=== PATIENT | male | born 1985 | race Two or more races ===

== ENCOUNTER 2019-05-06 04:55 | Emergency (ER) | payer MEDICAID ==
[~2019-05-06] VITALS: Ht 180.3 cm; Wt 77.0 kg
[2019-05-06] MEDS ORDERED: ONDANSETRON HCL 4 MG/2 ML VIAL IVP ONE (05:45)
[2019-05-06] MEDS ORDERED: SODIUM CHLORIDE 0.9% 1,000 ML IV ONE ×2 (05:45→07:15)
[2019-05-06 06:11] LABS: BASOPHILS % (AUTO) 0.4 % (0.0-2.0); EOSINOPHILS % (AUTO) 0.1 % (1.0-6.0); HEMATOCRIT 44.6 % (41-53); HEMOGLOBIN 15.6 g/dL (13.5-17.5); LYMPHOCYTES # (AUTO) 0.4 K/uL (1.0-4.8); LYMPHOCYTES % (AUTO) 2.1 % (22.0-44.0); MEAN CORPUSCULAR HEMOGLOBIN 30.7 pg (26.0-34.0); MEAN CORPUSCULAR HGB CONC 35.1 G/dL (31.0-37.0); MEAN CORPUSCULAR VOLUME 88 fL (80-100); MONOCYTES # (AUTO) 0.5 K/uL (0.1-1.0); NEUTROPHILS # (AUTO) 16.8 K/uL (1.8-7.7); PLATELET COUNT (AUTO) 227 K/uL (150-450); RED BLOOD CELL COUNT(AUTO) 5.09 MIL/uL (4.50-5.90); RED CELL DISTRIBUTION WIDTH 12.6 % (11.5-14.5)
[2019-05-06 06:13] LABS: NEUTROPHILS % (AUTO) 94.4 % (40.0-70.0)
[2019-05-06] MEDS ORDERED: BISMUTH SUBSALICYLATE 524 MG/30 ML SUSPENSION UDCUP PO ONE (06:15)
[2019-05-06 06:16] LABS: ANION GAP 7 mmol/L (8-16); CALCIUM, TOTAL 8.7 mg/dL (8.8-10.5); CARBON DIOXIDE 27 mmol/L (22-29); CHLORIDE 102 mmol/L (98-107); CREATININE 1.11 mg/dL (0.60-1.30); GLOMERULAR FILTR. RATE CALC > 60 mL/min (>60); GLUCOSE,RANDOM 124 mg/dL (70-110); POTASSIUM 4.1 mmol/L (3.5-5.1); SODIUM SERUM 136 mmol/L (136-145); UREA NITROGEN, BLOOD 17 mg/dL (7-18)
[2019-05-06 06:24] LABS: ALANINE AMINOTRANSFERASE 42 U/L (12-78); ALBUMIN 4.2 g/dL (3.4-5.0); ALKALINE PHOSPHATASE 79 U/L (46-116); ASPARTATE AMINOTRANSFERASE 26 U/L (15-37); BILIRUBIN,TOTAL 0.9 mg/dL (0.1-1.0); LIPASE 76 U/L (73-393); TOTAL PROTEIN, SERUM 7.8 g/dL (6.4-8.2)
[2019-05-06 06:58] LABS: INFLUENZA TYPE A NEGATIVE FOR TYPE A (NEGATIVE); INFLUENZA TYPE B NEGATIVE FOR TYPE B (NEGATIVE)
[2019-05-06] MEDS ORDERED: SODIUM CHLORIDE 0.9% 500 ML IV ONE (07:15)
[2019-05-06 07:57] LABS: C-REACTIVE PROTEIN QUANT 0.44 mg/dL (0.00-0.30)
[2019-05-06 08:01] LABS: INR 1.2 (0.9-1.1); PROTHROMBIN TIME 12.1 SEC (9.4-11.6)
[2019-05-06 08:08] LABS: LACTIC ACID 1.2 mmol/L (0.4-2.0)
[2019-05-06 09:07] LABS: APPEARANCE,URINE CLEAR (CLEAR); BILIRUBIN,URINE NEGATIVE (NEGATIVE); GLUCOSE, URINE (UA) NEGATIVE (NEGATIVE); KETONES,URINE NEGATIVE (NEGATIVE); LEUKOCYTE ESTERASE ,URINE NEGATIVE (NEGATIVE); NITRATE,URINE NEGATIVE (NEGATIVE); OCCULT BLOOD,URINE NEGATIVE (NEGATIVE); PROTEIN,URINE NEGATIVE (NEGATIVE); UROBILINOGEN,URINE 0.2 mg/dL (<=1.0)
[2019-05-06 09:44] VITALS: BP 107/74
== END 2019-05-06 09:57 | disposition home or self-care (01) ==
LOC: EMS 04:55
DX: K52.9 Noninfective gastroenteritis and colitis, unspecified (principal); R11.2 Nausea with vomiting, unspecified
CPT/HCPCS: 36415; 74022; 80053; 81003; 83605; 83690; 85025; 85610; 86140; 87040; 87804; 93005; 96361; 96374; 99285; J2405; J7030; J7040

== ENCOUNTER 2021-03-15 19:50 | Emergency (ER) | payer MEDICAID ==
[~2021-03-15] VITALS: Ht 175.3 cm; Wt 80.9 kg
[2021-03-15 21:49] VITALS: BP 120/63
== END 2021-03-15 22:10 | disposition home or self-care (01) ==
LOC: EMS 19:56
DX: S90.862A Insect bite (nonvenomous), left foot, initial encounter (principal); S90.861A Insect bite (nonvenomous), right foot, initial encounter; S40.862A Insect bite (nonvenomous) of left upper arm, initial encounter; S40.861A Insect bite (nonvenomous) of right upper arm, initial encounter; W57.XXXA Bitten or stung by nonvenomous insect and other nonvenomous arthropods, initial encounter; Y93.89 Activity, other specified; Y92.89 Other specified places as the place of occurrence of the external cause; Y99.8 Other external cause status
CPT/HCPCS: 99282; Z7502

== ENCOUNTER 2022-04-01 03:08 | Emergency (ER) | payer MEDICAID ==
[~2022-04-01] VITALS: Ht 175.3 cm; Wt 79.5 kg
[2022-04-01 03:08] VITALS: BP 142/80
== END 2022-04-01 04:50 | disposition home or self-care (01) ==
LOC: EMS 03:09
DX: S40.011A Contusion of right shoulder, initial encounter (principal); S09.90XA Unspecified injury of head, initial encounter; W17.89XA Other fall from one level to another, initial encounter; Y93.89 Activity, other specified; Y92.89 Other specified places as the place of occurrence of the external cause; Y99.8 Other external cause status
CPT/HCPCS: 70450; 99284

== ENCOUNTER 2022-05-05 14:20 | Emergency (ER) | payer MEDICAID ==
[~2022-05-05] VITALS: Ht 177.8 cm; Wt 77.3 kg
[2022-05-05] MEDS ORDERED: MUPI15CR12 TP ×2 (15:03→15:47)
[2022-05-05] MEDS ORDERED: CEPH-558 PO ×2 (15:03→15:47)
[2022-05-05] MEDS ORDERED: CEPHALEXIN MONOHYDRATE 500 MG CAPSULE PO ONE (15:15)
[2022-05-05] MEDS ORDERED: MUPIROCIN CALCIUM 2% 22 GM OINTMENT TP ONE (15:15)
[2022-05-05 16:00] VITALS: BP 111/72
== END 2022-05-05 16:00 | disposition home or self-care (01) ==
LOC: EMS 14:23
DX: T21.26XA Burn of second degree of male genital region, initial encounter (principal); T21.16XA Burn of first degree of male genital region, initial encounter; X12.XXXA Contact with other hot fluids, initial encounter; Y93.89 Activity, other specified; Y92.89 Other specified places as the place of occurrence of the external cause; Y99.8 Other external cause status
CPT/HCPCS: 16000; 99283

== ENCOUNTER 2022-11-22 02:28 | Emergency (ER) | payer MEDICAID ==
[~2022-11-22] VITALS: Ht 175.3 cm; Wt 82.7 kg
[~2022-11-22 02:28] MED LIST: CEPH-558 PO; MUPI15CR12 TP
[2022-11-22 02:52] VITALS: BP 126/77
== END 2022-11-22 03:39 | disposition home or self-care (01) ==
LOC: EMS 02:33
DX: J03.90 Acute tonsillitis, unspecified (principal)
CPT/HCPCS: 87430; 99283

== ENCOUNTER 2025-02-01 21:13 | Emergency (ER) | payer MEDICAID, OTHER ==
[~2025-02-01] VITALS: Ht 182.9 cm; Wt 92.3 kg
[2025-02-01 21:21] VITALS: BP 106/90; PULSE 97; RESP 14; TEMP 98.9; O2SAT 98
[2025-02-01] MEDS ORDERED: IBUP-1492 PO (22:45)
[2025-02-01] MEDS: IBUPROFEN 600 MG TABLET PO ONE (22:56)
== END 2025-02-01 23:06 | disposition home or self-care (01) ==
LOC: EMS 21:13
DX: S90.111A Contusion of right great toe without damage to nail, initial encounter (principal); Z79.899 Other long term (current) drug therapy; X50.1XXA Overexertion from prolonged static or awkward postures, initial encounter; Y93.K1 Activity, walking an animal; Y92.89 Other specified places as the place of occurrence of the external cause; Y99.8 Other external cause status
CPT/HCPCS: 99283